=== PATIENT | male | born 1975 | race Caucasian/White ===

== ENCOUNTER 2024-09-16 15:10 | Emergency (ER) | payer OTHER ==
[~2024-09-16] VITALS: Ht 177.8 cm; Wt 95.0 kg
[2024-09-16] MEDS: LIDOCAINE 2% 5ML JELLY UROJET TOP ONE (16:42)
[2024-09-16 16:43] VITALS: BP 137/80; TEMP 98.7; O2SAT 96
[2024-09-16 17:36] LABS: BASO % 0.3 % (0.0-1.0); EOS # 0.1 10^3/uL (0.0-0.5); HEMATOCRIT 42.4 % (42.0-52.0); HEMOGLOBIN 14.2 g/dl (13.5-17.5); LYMPH # 1.3 10^3/uL (1.5-5.0); LYMPH % 11.5 % (24.0-44.0); MEAN CORPUSCULAR HGB CONC 33.5 g/dl (32.0-36.5); MEAN CORPUSCULAR VOLUME 92.6 fl (80.0-96.0); MONO # 0.9 10^3/uL (0.0-0.8); MONO % 7.8 % (2.0-8.0); NEUTROPHILS # 9.1 10^3/uL (1.5-8.5); NEUTROPHILS % 79.1 % (36.0-66.0); PLATELET COUNT, AUTOMATED 260 10^3/uL (150-450); RED BLOOD COUNT 4.58 10^6/uL (4.30-6.10); WHITE BLOOD COUNT 11.4 10^3/uL (4.0-10.0)
[2024-09-24] MEDS ORDERED: AMOX500T2 PO (14:27)
== END 2024-09-16 18:39 | disposition home or self-care (01) ==
LOC: M ED 15:10
DX: N35.911 Unspecified urethral stricture, male, meatal (principal); J30.2 Other seasonal allergic rhinitis

== ENCOUNTER → 2024-09-23 | Outpatient (CLI) | payer BC ==
[~2024-09-23] MED LIST: AMOX500T PO; AMOX500T2 PO
== END ==
LOC: M RAD 12:55
PROVIDERS: ATTEND Physician Assistant
DX: Z01.818 Encounter for other preprocedural examination (principal)

== ENCOUNTER → 2024-09-23 | Outpatient (REF) | payer BC, OTHER ==
[~2024-09-23] MED LIST changes: -AMOX500T PO
== END ==
LOC: M SMT 12:39
PROVIDERS: ATTEND Physician Assistant
DX: N35.919 Unspecified urethral stricture, male, unspecified site (principal)

== ENCOUNTER 2024-09-28 11:09 | Day surgery (SDC) | payer BC ==
[~2024-09-28] VITALS: Ht 177.8 cm; Wt 93.3 kg
[2024-09-28] MEDS ORDERED: LR 500 ML IV SCH (11:20)
[2024-09-28] MEDS ORDERED: SODIUM CHLORIDE 0.9% 250ML IV ONE (13:05)
[2024-09-28] MEDS ORDERED: ACETAMINOPHEN 1000MG/100ML IV BAG As Ordered ONE (14:29)
[2024-09-28] MEDS ORDERED: propofoL 200 MG/20 ML VIAL As Ordered ONE (14:29)
[2024-09-28] MEDS ORDERED: LIDOCAINE 2% 100MG/5ML SDV (FOR ANES.) As Ordered ONE (14:30)
[2024-09-28] MEDS ORDERED: ONDANSETRON 4MG 2ML VIAL As Ordered ONE (14:30)
[2024-09-28] MEDS ORDERED: MIDAZOLAM INJ 2MG/2ML VIAL As Ordered ONE (14:31)
[2024-09-28] MEDS ORDERED: fentaNYL 100 MCG/2 ML INJECTION As Ordered ONE (14:32)
[2024-09-28] MEDS: ceFAZolin SOD 2 GM in IV 1 EA IV ONE (15:00)
[2024-09-28] MEDS: BOTOX THERAPEUTIC 100 UNIT VIAL As Ordered ONE (15:10)
[2024-09-28] MEDS ORDERED: ONDANSETRON 4MG 2ML VIAL IV PRN (15:25)
[2024-09-28] MEDS ORDERED: fentaNYL 100 MCG/2 ML INJECTION IV PRN (15:25)
[2024-09-28] MEDS ORDERED: AMOX500T PO (15:37)
[2024-09-28] MEDS ORDERED: HYDROMORPHONE HCL 0.5 MG/ 0.5 ML SYRINGE IV PRN (15:50)
[2024-09-28] MEDS: oxyCODONE 5MG TAB PO PRN (16:01)
[2024-09-28 17:20] VITALS: BP 140/78; TEMP 97.5; O2SAT 97
== END 2024-09-28 17:43 | disposition home or self-care (01) ==
LOC: M SDC 11:09
PROVIDERS: ATTEND Urology
DX: N35.811 Other urethral stricture, male, meatal (principal)
CPT/HCPCS: 52281; A4215; C1769; J0131; J0690; J1100; J2250; J2405; J3010